=== PATIENT | female | born 1995 | race Caucasian/White ===

== ENCOUNTER 2016-06-13 23:39 | Emergency (ER) | payer OTHER ==
--- NOTE | 2016-06-14 03:38 | ED ORDER SUMMARY ---
..... Patient: SOTERO BRAXTON OrderSheet [facility] VisitID: [id number] [address] [place] [address] 20y, F Registration Date/Time: 06/13/2016 ORDER SHEET Weight: 54.4 kg Allergies: No Known Drug Allergy GENERAL ORDERS: UA-Culture if indicated Urgent (00:21 06/14/2016 Sukumar Fuller) (Ack 0:23 CHagerty ER Veneer Cutter) Urine Drug Screen Urgent (00:06/14/2016 Sukumar Fuller) (Ack 0:23 CHagerty ER Veneer Cutter) Cardiac Panel Stat (00:06/14/2016 Sukumar Fuller) (Ack 0:23 CHagerty ER Veneer Cutter) BNP Urgent (00:06/14/2016 Sukumar Fuller) (Ack 0:23 CHagerty ER Veneer Cutter) D-Dimer Urgent (00:06/14/2016 Sukumar Fuller) (Ack 0:23 CHagerty ER Veneer Cutter) EKG - ER Stat (00:21 06/14/2016 Sukumar Fuller) (0:21 Sukumar Fuller) Urine Urgent (01:06/14/2016 Sukumar Fuller) (Ack 1:21 CHagerty ER Veneer Cutter) Chest 2V Urgent (02:29 06/14/2016 Sukumar Fuller) (Ack 2:38 CHagerty ER Veneer Cutter) (3:04 Yany) MEDICATION ORDERS: GI Cocktail WHITE PO 30 mL with Lidocaine Viscous Mouth/Throat 15 mL, Maalox Plus Oral 15 mL (NOW) (02:37 06/14/2016 DBeypamela R.NRuthie verbal order read back to Sukumar Fuller) (2:46 DBeyer RRuthieN.) IV FLUIDS: IV Saline Lock (00:06/14/2016 Sukumar Fuller) (0:37 DBeyer R.N.) ORDER SHEET NOTES: [Electronically signed by Ulisses Olsen R.N. (04:54 06/14/2016)] [Electronically signed by Canelo Haddad Dr. (05:02 06/14/2016)] [Electronically locked/signed by Ulisses Olsen R.N. (04:54 06/14/2016)]
--- NOTE | 2016-06-14 03:38 | ED CLINICAL REPORT ---
Clinical Report - Physicians/Mid Levels [facility] [address] [address] 06/13/2016 23:39 Patient: SOTERO BRAXTON Time Seen: 23:52; initial patient contact. Arrived- By private vehicle. Historian- patient. HISTORY OF PRESENT ILLNESS Chief Complaint: CHEST PAIN. At its maximum, severity described as moderate. When seen in the E.D., severity described as moderate. Modifying factors- (Relief w/ APAP). Not worsened by anything. It is described as "pain" and it is described as located in the central chest area. No radiation. This started just prior to arrival and is still present. Onset during rest. No nausea, vomiting or diaphoresis. She has had mild difficulty breathing. Similar symptoms previously: Once (2 months ago). Recent medical care: Not recently seen/assessed. REVIEW OF SYSTEMS No fever or chills. All systems otherwise negative, except as recorded above. PAST HISTORY Negative. Knee Surgery. Problems: no known problems. Surgeries: No history of previous surgery. Medications: Desogen Oral. Allergies: No Known Drug Allergy. SOCIAL HISTORY Never smoker. No alcohol use or drug use. ADDITIONAL NOTES The nursing notes have been reviewed with agreement regarding the chief complaint, PMH and patient medications and allergies. PHYSICAL EXAM Vital Signs: 06/13/2016 23:47 BP: 120/84. HR: 57. RR: 18. O2 saturation: 99%. Temp: 97.9 F. Have been reviewed. Blood pressure normal. Tachycardic. Respiratory rate normal. Temperature normal. Oxygen saturation normal. Appearance: Alert. Oriented X3. No acute distress. Eyes: Eyes normal inspection. ENT: Pharynx normal. CVS: Normal heart rate and rhythm. Heart sounds normal. Respiratory: No respiratory distress. Breath sounds normal. Abdomen: Soft and nontender. Bowel sounds normal. Skin: Skin warm and dry. Normal skin color. Extremities: No lower extremity edema. Neuro: Oriented X 3. LABS, X-RAYS, AND EKG Chest X-ray: No acute disease. Normal lung markings present. Normal heart size. Mediastinum normal. Great vessels normal. Soft tissues normal. No infiltrate. No fracture. No bony lesion present. Views: PA and lateral. Technique: good. The X-rays were independently viewed by me and interpreted contemporaneously by me. Interpretation time: 03:11. Laboratory Tests: UA-Culture if indicated: (YVETTE: 06/14/2016 00:22) ( [facility] 06/14/2016 00:58) Final results Test Result Flag Units (Reference) URINE COLOR YELLOW URINE APPEARANCE CLEAR URINE GLUCOSE NEGATIVE (NEGATIVE) URINE BILIRUBIN NEGATIVE (NEGATIVE) URINE KETONE NEGATIVE (NEGATIVE) URINE SPECIFIC GRAVITY 1.015 (1.010-1.030) URINE PH 6.0 (5.0-8.0) URINE PROTEIN NEGATIVE (NEGATIVE) URINE UROBILINOGEN 0.2 EU/dL (0.2-1.0) URINE NITRITE NEGATIVE (NEGATIVE) URINE BLOOD NEGATIVE (NEGATIVE) URINE LEUK ESTERASE NEGATIVE (NEGATIVE) URINE RBC 0-1 rbc/hpf (0-1) URINE WBC 1-3 wbc/hpf (0-1) URINE EPITHELIAL CELLS 3-5 EPI/hpf (0-5) URINE BACTERIA TRACE (<1+) (NONE SEEN) URINE COMMENT CULT NOT INDICATED MUCUS 2+URINE CULTURES ARE SET-UP BASED ON THE FOLLOWING CRITERIA:POSITIVE NITRITEPOSITIVE LEUKOCYTE ESTERASEGREATER THAN 10 WHITE BLOOD CELLSMODERATE (2+) OR GREATER BACTERIA Urine: (YVETTE: 06/14/2016 00:22) ( [facility] 06/14/2016 01:55) Final results Test Result Flag Units (Reference) URINE NEGATIVE CBC w Diff: (YVETTE: 06/14/2016 00:24) ( [facility] 06/14/2016 00:51) Final results Test Result Flag Units (Reference) WHITE BLOOD COUNT 8.4 K/uL (4.5-11.5) RED BLOOD COUNT 4.69 M/uL (4.00-5.20) HEMOGLOBIN 14.5 gm/dL (12.0-16.0) HEMATOCRIT 43.1 % (36.0-46.0) MEAN CELL VOLUME 92 fL (80-100) MEAN CORPUSCULAR HGB 31 pg (26-34) MEAN CORPUSCULAR HGB CONC 34 g/dL (31-37) RED CELL DISTRIBUTION WIDTH 13.4 % (11.6-14.8) PLATELET COUNT 226 K/uL (150-400) NEUTROPHIL % 56.9 % (50-75) LYMPH % 31.5 % (25-40) MONO % 9.1 % (3-14) EOSINOPHIL % 1.6 % (0-4) BASOPHIL % 0.9 % (0-2) [id number]: (YVETTE: 06/14/2016 00:24) ( MsgRcvd 06/14/2016 01:09) Final results Test Result Flag Units (Reference) D-DIMER QUANTITATIVE 0.40 ug/mLFEU (0.27-0.52) The primary value of this quantitative assay relates toits negative predictive value (i.e. exclusion) of pulmonaryembolism/deep vein thrombosis/DIC.Elevated levels of d-dimer may also occur with:, age, cancer, inflammation, liver disease,post-op, infection, hematoma, coronary disease, peripheralarteriopathy, bleeding disorders and thrombolytic treatment.Results should be correlated with other clinical andradiological data.Testing Methodology: Latex Immunoassay Urine Drug Screen: (YVETTE: 06/14/2016 00:22) ( MsgRcvd 06/14/2016 01:05) Final results Test Result Flag Units (Reference) AMPHETAMINE/METHAMPHETAMINE NEGATIVE (NEGATIVE) BARBITURATE NEGATIVE (NEGATIVE) BENZODIAZEPINE NEGATIVE (NEGATIVE) CANNABINOID NEGATIVE (NEGATIVE) COCAINE NEGATIVE (NEGATIVE) ECSTASY NEGATIVE (NEGATIVE) METHADONE NEGATIVE (NEGATIVE) OPIATE NEGATIVE (NEGATIVE) The urine drug screen is a qualitative screening test fordrug overdose and abuse. All screen results should beconsidered as presumptive.Drugs screened for are as follows:BenzodiazepinesCocaineAmphetamines/MetamphetaminesTHC (Tetrahydrocannabinol)OpiatesBarbituratesEcstasyMethadonePositive results are unconfirmed. For confirmation, notifythe lab for the specimen to be sent to the reference lab.All confirmations must be performed by a differentmethodology.The ingestion of natural herbal and plant productscontaining Ephedra/Ephedra metabolites can produce in urineone or more substances capable of cross reacting withamphetamine/methamphetamine immunoassays. These testsprovide a preliminary result only. A more specificalternative chemical method must be used to obtain aconfirmed analytical result. BNP: (YVETTE: 06/14/2016 00:24) ( MsgRcvd 06/14/2016 01:09) Final results Test Result Flag Units (Reference) B-TYPE NATRIURETIC PEPTIDE 17.7 pg/ml (5-100) CHEM 13 PANEL: (YVETTE: 06/14/2016 00:24) ( MsgRcvd 06/14/2016 01:52) Final results Test Result Flag Units (Reference) GLUCOSE 95 mg/dL (70-110) BUN 17 mg/dL (7-18) CREATININE 0.8 mg/dL (0.6-1.3) Estimated GFR >60 mL/min Estimated GFR- >60 mL/min Note: Persistent reduction over 3 months in eGFR<60 mL/min/1.73 m2 defines CKD. Patients with eGFR values>=60 mL/min/1.73 m2 may also have CKD if evidence ofpersistent proteinuria. Additional information may be foundat www.kidney.org. SODIUM 141 mmol/L (136-145) POTASSIUM 3.6 mmol/L (3.5-5.1) CHLORIDE 104 mmol/L (98-107) CARBON DIOXIDE 27 mmol/L (21-32) CALCIUM 9.1 mg/dL (8.5-10.1) TOTAL PROTEIN 8.1 g/dL (6.4-8.2) ALBUMIN 3.8 g/dL (3.3-5.0) BILIRUBIN, TOTAL 0.4 mg/dL (0.0-1.0) ALKALINE PHOSPHATASE 43 L U/L (46-116) AST (SGOT) 31 U/L (15-37) ALT (SGPT) 28 U/L (12-78) CPK 490 H U/L (24-260) MAGNESIUM 1.8 mg/dL (1.8-2.4) CK-MB 14.3 H ng/mL (0.5-3.2) %CKMB 2.9 % (0.0-4.0) TROPONIN I <0.05 L ng/mL (0.00-1.5) TROPONIN REFERENCE RANGE:<0.1 NEGATIVE0.1-1.5 INDETERMINANT>1.5 POSITIVE . PROGRESS AND PROCEDURES Disposition: Discharged home in good and improved condition. Condition: good. CLINICAL IMPRESSION Atypical chest pain .12 lead EKG performed. INSTRUCTIONS Follow-up: Follow up with your doctor in about four days. Call for an appointment. Screening today revealed the patient's blood pressure to be in the normal range. (Electronically signed by Canelo Haddad Dr. 06/14/2016 5:02)
--- NOTE | 2016-06-14 03:38 | ED CLINICAL REPORT ---
Clinical Report - Physicians/Mid Levels [facility] [address] [place] [address] 06/13/2016 23:39 Patient: SOTERO BRAXTON Time Seen: 23:52; initial patient contact. Arrived- By private vehicle. Historian- patient. HISTORY OF PRESENT ILLNESS Chief Complaint: CHEST PAIN. At its maximum, severity described as moderate. When seen in the E.D., severity described as moderate. Modifying factors- (Relief w/ APAP). Not worsened by anything. It is described as "pain" and it is described as located in the central chest area. No radiation. This started just prior to arrival and is still present. Onset during rest. No nausea, vomiting or diaphoresis. She has had mild difficulty breathing. Similar symptoms previously: Once (2 months ago). Recent medical care: Not recently seen/assessed. REVIEW OF SYSTEMS No fever or chills. All systems otherwise negative, except as recorded above. PAST HISTORY Negative. Knee Surgery. Problems: no known problems. Surgeries: No history of previous surgery. Medications: Desogen Oral. Allergies: No Known Drug Allergy. SOCIAL HISTORY Never smoker. No alcohol use or drug use. ADDITIONAL NOTES The nursing notes have been reviewed with agreement regarding the chief complaint, PMH and patient medications and allergies. PHYSICAL EXAM Vital Signs: 06/13/2016 23:47 BP: 120/84. HR: 57. RR: 18. O2 saturation: 99%. Temp: 97.9 F. Have been reviewed. Blood pressure normal. Tachycardic. Respiratory rate normal. Temperature normal. Oxygen saturation normal. Appearance: Alert. Oriented X3. No acute distress. Eyes: Eyes normal inspection. ENT: Pharynx normal. CVS: Normal heart rate and rhythm. Heart sounds normal. Respiratory: No respiratory distress. Breath sounds normal. Abdomen: Soft and nontender. Bowel sounds normal. Skin: Skin warm and dry. Normal skin color. Extremities: No lower extremity edema. Neuro: Oriented X 3. LABS, X-RAYS, AND EKG Chest X-ray: No acute disease. Normal lung markings present. Normal heart size. Mediastinum normal. Great vessels normal. Soft tissues normal. No infiltrate. No fracture. No bony lesion present. Views: PA and lateral. Technique: good. The X-rays were independently viewed by me and interpreted contemporaneously by me. Interpretation time: 03:11. Laboratory Tests: UA-Culture if indicated: (YVETTE: 06/14/2016 00:22) ( [facility] 06/14/2016 00:58) Final results Test Result Flag Units (Reference) URINE COLOR YELLOW URINE APPEARANCE CLEAR URINE GLUCOSE NEGATIVE (NEGATIVE) URINE BILIRUBIN NEGATIVE (NEGATIVE) URINE KETONE NEGATIVE (NEGATIVE) URINE SPECIFIC GRAVITY 1.015 (1.010-1.030) URINE PH 6.0 (5.0-8.0) URINE PROTEIN NEGATIVE (NEGATIVE) URINE UROBILINOGEN 0.2 EU/dL (0.2-1.0) URINE NITRITE NEGATIVE (NEGATIVE) URINE BLOOD NEGATIVE (NEGATIVE) URINE LEUK ESTERASE NEGATIVE (NEGATIVE) URINE RBC 0-1 rbc/hpf (0-1) URINE WBC 1-3 wbc/hpf (0-1) URINE EPITHELIAL CELLS 3-5 EPI/hpf (0-5) URINE BACTERIA TRACE (<1+) (NONE SEEN) URINE COMMENT CULT NOT INDICATED MUCUS 2+URINE CULTURES ARE SET-UP BASED ON THE FOLLOWING CRITERIA:POSITIVE NITRITEPOSITIVE LEUKOCYTE ESTERASEGREATER THAN 10 WHITE BLOOD CELLSMODERATE (2+) OR GREATER BACTERIA Urine: (YVETTE: 06/14/2016 00:22) ( [facility] 06/14/2016 01:55) Final results Test Result Flag Units (Reference) URINE NEGATIVE CBC w Diff: (YVETTE: 06/14/2016 00:24) ( [facility] 06/14/2016 00:51) Final results Test Result Flag Units (Reference) WHITE BLOOD COUNT 8.4 K/uL (4.5-11.5) RED BLOOD COUNT 4.69 M/uL (4.00-5.20) HEMOGLOBIN 14.5 gm/dL (12.0-16.0) HEMATOCRIT 43.1 % (36.0-46.0) MEAN CELL VOLUME 92 fL (80-100) MEAN CORPUSCULAR HGB 31 pg (26-34) MEAN CORPUSCULAR HGB CONC 34 g/dL (31-37) RED CELL DISTRIBUTION WIDTH 13.4 % (11.6-14.8) PLATELET COUNT 226 K/uL (150-400) NEUTROPHIL % 56.9 % (50-75) LYMPH % 31.5 % (25-40) MONO % 9.1 % (3-14) EOSINOPHIL % 1.6 % (0-4) BASOPHIL % 0.9 % (0-2) [id number]: (YVETTE: 06/14/2016 00:24) ( MsgRcvd 06/14/2016 01:09) Final results Test Result Flag Units (Reference) D-DIMER QUANTITATIVE 0.40 ug/mLFEU (0.27-0.52) The primary value of this quantitative assay relates toits negative predictive value (i.e. exclusion) of pulmonaryembolism/deep vein thrombosis/DIC.Elevated levels of d-dimer may also occur with:, age, cancer, inflammation, liver disease,post-op, infection, hematoma, coronary disease, peripheralarteriopathy, bleeding disorders and thrombolytic treatment.Results should be correlated with other clinical andradiological data.Testing Methodology: Latex Immunoassay Urine Drug Screen: (YVETTE: 06/14/2016 00:22) ( MsgRcvd 06/14/2016 01:05) Final results Test Result Flag Units (Reference) AMPHETAMINE/METHAMPHETAMINE NEGATIVE (NEGATIVE) BARBITURATE NEGATIVE (NEGATIVE) BENZODIAZEPINE NEGATIVE (NEGATIVE) CANNABINOID NEGATIVE (NEGATIVE) COCAINE NEGATIVE (NEGATIVE) ECSTASY NEGATIVE (NEGATIVE) METHADONE NEGATIVE (NEGATIVE) OPIATE NEGATIVE (NEGATIVE) The urine drug screen is a qualitative screening test fordrug overdose and abuse. All screen results should beconsidered as presumptive.Drugs screened for are as follows:BenzodiazepinesCocaineAmphetamines/MetamphetaminesTHC (Tetrahydrocannabinol)OpiatesBarbituratesEcstasyMethadonePositive results are unconfirmed. For confirmation, notifythe lab for the specimen to be sent to the reference lab.All confirmations must be performed by a differentmethodology.The ingestion of natural herbal and plant productscontaining Ephedra/Ephedra metabolites can produce in urineone or more substances capable of cross reacting withamphetamine/methamphetamine immunoassays. These testsprovide a preliminary result only. A more specificalternative chemical method must be used to obtain aconfirmed analytical result. BNP: (YVETTE: 06/14/2016 00:24) ( MsgRcvd 06/14/2016 01:09) Final results Test Result Flag Units (Reference) B-TYPE NATRIURETIC PEPTIDE 17.7 pg/ml (5-100) CHEM 13 PANEL: (YVETTE: 06/14/2016 00:24) ( MsgRcvd 06/14/2016 01:52) Final results Test Result Flag Units (Reference) GLUCOSE 95 mg/dL (70-110) BUN 17 mg/dL (7-18) CREATININE 0.8 mg/dL (0.6-1.3) Estimated GFR >60 mL/min Estimated GFR- >60 mL/min Note: Persistent reduction over 3 months in eGFR<60 mL/min/1.73 m2 defines CKD. Patients with eGFR values>=60 mL/min/1.73 m2 may also have CKD if evidence ofpersistent proteinuria. Additional information may be foundat www.kidney.org. SODIUM 141 mmol/L (136-145) POTASSIUM 3.6 mmol/L (3.5-5.1) CHLORIDE 104 mmol/L (98-107) CARBON DIOXIDE 27 mmol/L (21-32) CALCIUM 9.1 mg/dL (8.5-10.1) TOTAL PROTEIN 8.1 g/dL (6.4-8.2) ALBUMIN 3.8 g/dL (3.3-5.0) BILIRUBIN, TOTAL 0.4 mg/dL (0.0-1.0) ALKALINE PHOSPHATASE 43 L U/L (46-116) AST (SGOT) 31 U/L (15-37) ALT (SGPT) 28 U/L (12-78) CPK 490 H U/L (24-260) MAGNESIUM 1.8 mg/dL (1.8-2.4) CK-MB 14.3 H ng/mL (0.5-3.2) %CKMB 2.9 % (0.0-4.0) TROPONIN I <0.05 L ng/mL (0.00-1.5) TROPONIN REFERENCE RANGE:<0.1 NEGATIVE0.1-1.5 INDETERMINANT>1.5 POSITIVE . PROGRESS AND PROCEDURES Disposition: Discharged home in good and improved condition. Condition: good. CLINICAL IMPRESSION Atypical chest pain .12 lead EKG performed. INSTRUCTIONS Follow-up: Follow up with your doctor in about four days. Call for an appointment. Screening today revealed the patient's blood pressure to be in the normal range. (Electronically signed by Canelo Haddad Dr. 06/14/2016 5:02)
--- NOTE | 2016-06-14 03:38 | ED ORDER SUMMARY ---
..... Patient: SOTERO BRAXTON OrderSheet [facility] VisitID: [id number] [address] [place] [address] 20y, F Registration Date/Time: 06/13/2016 ORDER SHEET Weight: 54.4 kg Allergies: No Known Drug Allergy GENERAL ORDERS: UA-Culture if indicated Urgent (00:21 06/14/2016 Sukumar Fuller) (Ack 0:23 CHagerty ER Hose Builder) Urine Drug Screen Urgent (00:06/14/2016 Sukumar Fuller) (Ack 0:23 CHagerty ER Hose Builder) Cardiac Panel Stat (00:06/14/2016 Sukumar Fuller) (Ack 0:23 CHagerty ER Hose Builder) BNP Urgent (00:06/14/2016 Sukumar Fuller) (Ack 0:23 CHagerty ER Hose Builder) D-Dimer Urgent (00:06/14/2016 Sukumar Fuller) (Ack 0:23 CHagerty ER Hose Builder) EKG - ER Stat (00:21 06/14/2016 Sukumar Fuller) (0:21 Sukumar Fuller) Urine Urgent (01:06/14/2016 Sukumar Fuller) (Ack 1:21 CHagerty ER Hose Builder) Chest 2V Urgent (02:29 06/14/2016 Sukumar Fuller) (Ack 2:38 CHagerty ER Hose Builder) (3:04 Yany) MEDICATION ORDERS: GI Cocktail WHITE PO 30 mL with Lidocaine Viscous Mouth/Throat 15 mL, Maalox Plus Oral 15 mL (NOW) (02:37 06/14/2016 DBeypamela R.NRuthie verbal order read back to Sukumar Fuller) (2:46 DBeyer RRuthieN.) IV FLUIDS: IV Saline Lock (00:06/14/2016 Sukumar Fuller) (0:37 DBeyer R.N.) ORDER SHEET NOTES: [Electronically signed by Ulisses Olsen R.N. (04:54 06/14/2016)] [Electronically signed by Canelo Haddad Dr. (05:02 06/14/2016)] [Electronically locked/signed by Ulisses Olsen R.N. (04:54 06/14/2016)]
--- NOTE | 2016-06-14 03:38 | ED NURSING NOTES ---
Clinical Report - Nurses [facility] [place] [address] 06/13/2016 23:39 Patient: SOTERO BRAXTON TRIAGE Triage time 23:47 Jun 13 2016. Acuity: LEVEL 3. Chief Complaint: CHEST PAIN. --23:50 Ulisses Olsen R.N. 23:47 06/13/16. BP: 120/84. HR: 57. RR: 18. O2 saturation: 99%. Temp: 97.9 F. Pain level now 01/26. --23:50 Ulisses Olsen R.N. Weight: 54.4 kg. Height/Length: 64 inches. BMI: 20.6. --23:50 Ulisses Olsen R.N. Medications Desogen Oral. --23:49 Ulisses Olsen R.N. Allergies No Known Drug Allergy. --23:48 Ulisses Olsen R.N. History Arrived by private vehicle. ( at 1999 pt began have mid sternal cp that radiates to L shoulder). The patient has had difficulty breathing. No sweating episodes. SOCIAL HX: Never smoker. No alcohol use or drug use. --23:50 Ulisses Olsen R.N. ADDITIONAL SURGERIES: Knee Surgery. --23:49 Ulisses Olsen R.N. Assessment The patient states feels the same. --23:50 Ulisses Olsen R.N. Interventions ID band on patient. To treatment room. --23:50 Ulisses Olsen R.N. PHYSICAL ASSESSMENT ( Pt is no obvious distress, speaking in full sentences. reports hx of same symptoms. ekg in progress). GENERAL / NEURO / PSYCH: Alert. Oriented X 4. Appears in no acute distress. RESPIRATORY: Respirations not labored. Breath sounds within normal limits. CVS: Heart sounds within normal limits. GI / : Abdomen soft and nontender. EXTREMITIES: No lower extremity edema. SKIN: Skin is warm and dry. --23:52 Ulisses Olsen R.N. NURSING PROGRESS NOTES Monitoring of patient in place. EKG time: (23:52 Jun 13 2016). EKG was performed by a nurse. Patient gowned. Reassurance given. Two patient identifiers checked. Call light placed in reach. Side rails up x 1. Bed placed in lowest position. --23:53 Ulisses Olsen R.N. 00:37 06/14/2016 Site #1 started via IV antecubital space with an 20g angiocath, with aseptic technique; one attempt. Blood drawn: rainbow set. Labeled in the presence of the patient and sent to the lab. Saline lock flushed. --00:37 Ulisses Olsen R.N. 02:20 06/14/16. BP: 124/77. HR: 56. O2 saturation: 100%. --02:21 Ulisses Olsen R.N. 02:46 06/14/2016 GI COCKTAIL WHITE (Simethicone) PO 30 mL given. Allergies verified and confirmed 5 rights. --02:46 Ulisses Olsen R.N. DISPOSITION / DISCHARGE Departure time: 0347. No learning barriers present. Discharge instructions provided and reviewed with the patient. Patient verbalized understanding. Written instructions provided in [place]. The patient was discharged by the physician. She was discharged home and accompanied by mat cleaning machine operator. She left the Emergency Department ambulatory and via private vehicle. Behavioral Assistant driving. ( Pt ambulated on discharge steady on her feet, verbalized understanding of discharge instructions and follow up care). --03:54 Ulisses Olsen R.N. 03:52 06/14/16. BP: 115/67. HR: 70. RR: 20. O2 saturation: 99%. Pain level now 10. --03:54 Ulisses Olsen R.N. 03:54 06/14/2016 Site #1 removed upon discharge. Bandage applied. --03:54 Ulisses Olsen R.N. Locked/Released at 06/14/2016 4:54 by Ulisses Olsen R.N.
--- NOTE | 2016-06-14 03:38 | ED NURSING NOTES ---
Clinical Report - [facility] [place] [address] 06/13/2016 23:39 Patient: SOTERO BRAXTON TRIAGE Triage time 23:47 Jun 13 2016. Acuity: LEVEL 3. Chief Complaint: CHEST PAIN. --23:50 Ulisses Olsen R.N. 23:47 06/13/16. BP: 120/84. HR: 57. RR: 18. O2 saturation: 99%. Temp: 97.9 F. Pain level now 01/26. --23:50 Ulisses Olsen R.N. Weight: 54.4 kg. Height/Length: 64 inches. BMI: 20.6. --23:50 Ulisses Olsen R.N. Medications Desogen Oral. --23:49 Ulisses Olsen R.N. Allergies No Known Drug Allergy. --23:48 Ulisses Olsen R.N. History Arrived by private vehicle. ( at 1999 pt began have mid sternal cp that radiates to L shoulder). The patient has had difficulty breathing. No sweating episodes. SOCIAL HX: Never smoker. No alcohol use or drug use. --23:50 Ulisses Olsen R.N. ADDITIONAL SURGERIES: Knee Surgery. --23:49 Ulisses Olsen R.N. Assessment The patient states feels the same. --23:50 Ulisses Olsen R.N. Interventions ID band on patient. To treatment room. --23:50 Ulisses Olsen R.N. PHYSICAL ASSESSMENT ( Pt is no obvious distress, speaking in full sentences. reports hx of same symptoms. ekg in progress). GENERAL / NEURO / PSYCH: Alert. Oriented X 4. Appears in no acute distress. RESPIRATORY: Respirations not labored. Breath sounds within normal limits. CVS: Heart sounds within normal limits. GI / : Abdomen soft and nontender. EXTREMITIES: No lower extremity edema. SKIN: Skin is warm and dry. --23:52 Ulisses Olsen R.N. NURSING PROGRESS NOTES Monitoring of patient in place. EKG time: (23:52 Jun 13 2016). EKG was performed by a nurse. Patient gowned. Reassurance given. Two patient identifiers checked. Call light placed in reach. Side rails up x 1. Bed placed in lowest position. --23:53 Ulisses Oslen R.N. 00:37 06/14/2016 Site #1 started via IV antecubital space with an 20g angiocath, with aseptic technique; one attempt. Blood drawn: rainbow set. Labeled in the presence of the patient and sent to the lab. Saline lock flushed. --00:37 Ulisses Olsen R.N. 02:20 06/14/16. BP: 124/77. HR: 56. O2 saturation: 100%. --02:21 Ulisses Olsen R.N. 02:46 06/14/2016 GI COCKTAIL WHITE (Simethicone) PO 30 mL given. Allergies verified and confirmed 5 rights. --02:46 Ulisses Olsen R.N. DISPOSITION / DISCHARGE Departure time: 0347. No learning barriers present. Discharge instructions provided and reviewed with the patient. Patient verbalized understanding. Written instructions provided in [place]. The patient was discharged by the physician. She was discharged home and accompanied by transportation economics teacher. She left the Emergency Department ambulatory and via private vehicle. [employer]or [employer] driving. ( Pt ambulated on discharge steady on her feet, verbalized understanding of discharge instructions and follow up care). --03:54 Ulisses Olsen R.N. 03:52 06/14/16. BP: 115/67. HR: 70. RR: 20. O2 saturation: 99%. Pain level now 10. --03:54 Ulisses Olsen R.N. 03:54 06/14/2016 Site #1 removed upon discharge. Bandage applied. --03:54 Ulisses Olsen R.N. Locked/Released at 06/14/2016 4:54 by Ulisses Olsen R.N.
--- NOTE | 2016-06-14 05:02 | ED MED RECONCILIATION SUMMARY ---
Patient: SOTERO BRAXTON Medication Reconciliation Report [facility] VisitID: [id number] [address] [place] [address] 20y, F Registration Date/Time: 06/13/2016 Weight: 54.4 kg Height/Length: 64 in. BMI: 20.6 ALLERGIES: No Known Drug Allergy The patient's Home Medications are listed below: THE FOLLOWING MEDICATIONS NEED TO BE RECONCILED: Desogen Oral The source(s) of the original Home Medication information: Not obtained. The following Medications were given to the patient in the Emergency Department: GI COCKTAIL WHITE [PO] PO 30 mL, administered: 06/14/2016 2:46:00 AM The following Medications were prescribed to the patient: None.
--- NOTE | 2016-06-14 05:02 | ED DISCHARGE INSTRUCTIONS ---
Patient: SOTERO BRAXTON General Instructions [facility] VisitID: [id number] [place] [address] 20y, F Registration Date/Time: 06/13/2016 Atypical chest pain .12 lead EKG performed. INSTRUCTIONS Follow-up: Follow up with your doctor in about four days. Call for an appointment. Screening today revealed the patient's blood pressure to be in the normal range. ADDITIONAL INFORMATION Chest Pain, Noncardiac Based on your visit today, the exact cause of your chest pain is not certain. Your condition does not seem serious and your pain does not appear to be coming from your heart. However, sometimes the signs of a serious problem take more time to appear. Therefore, please watch for the warning signs listed below. Home Care: Rest today and avoid strenuous activity. Take any prescribed medicine as directed. Follow Up with your doctor or this facility as instructed or if you do not start to feel better within 24 hours. Get Prompt Medical Attention if any of the following occur: A change in the type of pain: if it feels different, becomes more severe, lasts longer, or begins to spread into your shoulder, arm, neck, jaw or back Shortness of breath or increased pain with breathing Cough with dark colored sputum (phlegm) or blood Weakness, dizziness, or fainting Fever of 100.4F (38C) or higher, or as directed by your healthcare provider Swelling, pain or redness in one leg You have been given the following additional information: Chest Pain, Noncardiac (Electronically signed by Canelo Haddad Dr. 06/14/2016 5:02)
--- NOTE | 2016-06-14 05:02 | ED MAR SUMMARY ---
..... Medication Administration Record [facility] [address] [place] [address] Patient: SOTERO BRAXTON Visit ID: [id number] 20y, F Weight: 54.4 kg Height/Length: 64 in BMI: 20.6 ALLERGIES: No Known Drug Allergy Given 02:46 06/14/2016 Ulisses Olsen, RRuthieNRuthie Medication Administered: GI COCKTAIL WHITE [PO] (SIMETHICONE), Dose: 30 mL PO. Medication Ordered: GI Cocktail WHITE PO 30 mL with Lidocaine Viscous Mouth/Throat 15 mL, Maalox Plus Oral 15 mL (NOW).
--- NOTE | 2016-06-14 05:02 | ED DISCHARGE INSTRUCTIONS ---
Patient: SOTERO BRAXTON General Instructions [facility] VisitID: [id number] [place] [address] 20y, F Registration Date/Time: 06/13/2016 Atypical chest pain .12 lead EKG performed. INSTRUCTIONS Follow-up: Follow up with your doctor in about four days. Call for an appointment. Screening today revealed the patient's blood pressure to be in the normal range. ADDITIONAL INFORMATION Chest Pain, Noncardiac Based on your visit today, the exact cause of your chest pain is not certain. Your condition does not seem serious and your pain does not appear to be coming from your heart. However, sometimes the signs of a serious problem take more time to appear. Therefore, please watch for the warning signs listed below. Home Care: Rest today and avoid strenuous activity. Take any prescribed medicine as directed. Follow Up with your doctor or this facility as instructed or if you do not start to feel better within 24 hours. Get Prompt Medical Attention if any of the following occur: A change in the type of pain: if it feels different, becomes more severe, lasts longer, or begins to spread into your shoulder, arm, neck, jaw or back Shortness of breath or increased pain with breathing Cough with dark colored sputum (phlegm) or blood Weakness, dizziness, or fainting Fever of 100.4F (38C) or higher, or as directed by your healthcare provider Swelling, pain or redness in one leg You have been given the following additional information: Chest Pain, Noncardiac (Electronically signed by Canelo Haddad Dr. 06/14/2016 5:02)
--- NOTE | 2016-06-14 05:02 | ED MAR SUMMARY ---
..... Medication Administration Record [facility] [address] [place] [address] Patient: SOTERO BRAXTON Visit ID: [id number] 20y, F Weight: 54.4 kg Height/Length: 64 in BMI: 20.6 ALLERGIES: No Known Drug Allergy Given 02:46 06/14/2016 Ulisses Olsen, RRuthieNRuthie Medication Administered: GI COCKTAIL WHITE [PO] (SIMETHICONE), Dose: 30 mL PO. Medication Ordered: GI Cocktail WHITE PO 30 mL with Lidocaine Viscous Mouth/Throat 15 mL, Maalox Plus Oral 15 mL (NOW).
--- NOTE | 2016-06-14 05:02 | ED MED RECONCILIATION SUMMARY ---
Patient: SOTERO BRAXTON Medication Reconciliation Report [facility] VisitID: [id number] [address] [place] [address] 20y, F Registration Date/Time: 06/13/2016 Weight: 54.4 kg Height/Length: 64 in. BMI: 20.6 ALLERGIES: No Known Drug Allergy The patient's Home Medications are listed below: THE FOLLOWING MEDICATIONS NEED TO BE RECONCILED: Desogen Oral The source(s) of the original Home Medication information: Not obtained. The following Medications were given to the patient in the Emergency Department: GI COCKTAIL WHITE [PO] PO 30 mL, administered: 06/14/2016 2:46:00 AM The following Medications were prescribed to the patient: None.
--- NOTE | 2016-06-14 06:23 | DIAGNOSTIC IMAGING REPORT ---
PROCEDURE: XR CHEST 2 VIEW INDICATION: CHEST PAIN TECHNIQUE: PA and lateral views. COMPARISON: None. FINDINGS: Allowing for overlying wires and electrodes, lungs are clear. Heart and mediastinum are normal. Thorax is normal. IMPRESSION: 1. Negative chest.
== END 2016-06-14 03:47 | disposition home or self-care (01) ==
LOC: ED SRH 23:39
DX: R07.89 Other chest pain (principal)
CPT/HCPCS: 90004; 90100; 90616; 90617; 91320; 91556; 92610; 92720; 92760; 92761; 92762; 92763; 92764; 92765; 92766; 92767; 93070; 95059